=== PATIENT | female | born 1970 | race Two or more races ===

== ENCOUNTER 2019-09-27 05:03 | Day surgery (SDC) | payer MEDICARE, OTHER ==
[2019-09-27] MEDS ORDERED: ANESTHESIA TRAY IN PYXIS 1 EA TRAY MC ONE (07:11)
[2019-09-27] MEDS ORDERED: EPINEPHRINE (1:1000) 1 MG/ML AMPUL ONE ×2 (07:13→07:51)
[2019-09-27] MEDS ORDERED: BUPIVACAINE 0.5 % PF 150 MG/30 ML VIAL ONE (07:41)
[2019-09-27] MEDS ORDERED: MIDAZOLAM HCL 2 MG/2ML VIAL ONE (07:41)
[2019-09-27] MEDS ORDERED: ROCURONIUM BROMIDE 50 MG/5 ML ONE (07:41)
[2019-09-27] MEDS ORDERED: FENTANYL PF 100MCG/2ML AMPUL ONE (09:14)
[2019-09-27] MEDS ORDERED: HYDROCODONE/APAP 10/325MG 1 EA TABLET ONE (09:32)
== END 2019-09-27 10:25 | disposition home or self-care (01) ==
LOC: DS 05:03
PROVIDERS: ATTEND Student in an Organized Health Care Education/Training Program
DX: M75.42 Impingement syndrome of left shoulder (principal); J44.9 Chronic obstructive pulmonary disease, unspecified; Z87.891 Personal history of nicotine dependence; E11.9 Type 2 diabetes mellitus without complications; Z92.21 Personal history of antineoplastic chemotherapy; Z79.899 Other long term (current) drug therapy
CPT/HCPCS: 29823; 29826; 88304; 88311; A4217; A6253; A6402; J0171 ×2; J0690; J1100; J1885; J2250; J2405; J2704; J2710; J3010; J3490 ×3